=== PATIENT | male | born 1940 | race Caucasian/White ===

== ENCOUNTER 2018-12-05 07:44 | Inpatient (IN) | payer MEDICARE, MEDICAID ==
[2018-12-05] VITALS (12 sets, daily range): BP systolic 122–158; BP diastolic 62–74
[~2018-12-05] VITALS: Ht 177.8 cm; Wt 51.3 kg
[2018-12-05 08:45] LABS: BASOPHILS % 0.8 % (0.0-2.0); EOSINOPHILS % 3.6 % (0.0-5.0); HEMATOCRIT. 41.7 % (42.0-52.0); HEMOGLOBIN. 13.6 g/dL (14.0-18.0); LYMPHOCYTES % 22.7 % (20.0-50.0); MEAN CORPUSCULAR HEMOGLOBIN 27.8 pg (28.0-32.0); MEAN CORPUSCULAR VOLUME 85.4 fL (80.0-94.0); MEAN PLATELET VOLUME 8.6 fl (7.4-10.4); MONOCYTES % 8.7 % (2.0-8.0); NEUTROPHILS % 64.2 % (40.0-76.0); PLATELET 177 x1000/uL (130-400); RED BLOOD CELL COUNT 4.88 mill/uL (4.7-6.1); RED CELL DISTRIBUTION WIDTH 14.5 % (11.6-14.6)
[2018-12-05 08:58] LABS: INR 1.1; PROTHROMBIN TIME 10.7 sec (9.1-11.1)
[2018-12-05] MEDS ORDERED: LOSA100T14 PO (10:18)
[2018-12-05] MEDS ORDERED: HYDR25TA PO (10:18)
[2018-12-05] MEDS ORDERED: FINA5TAB11 PO (10:18)
[2018-12-05] MEDS ORDERED: NITR0.4T49 SL (10:18)
[2018-12-05] MEDS ORDERED: LOVA40TA73 PO (10:18)
[2018-12-05] MEDS ORDERED: ASPI-1159 PO (10:18)
[2018-12-05] MEDS ORDERED: METF-414 PO (10:18)
[2018-12-05] MEDS ORDERED: ACETAMINOPHEN 650MG/20.3ML UDC GT PRN (12:00)
[2018-12-05] MEDS ORDERED: MAGNESIUM/ALUMINUM HYDROXIDE/SIMETHICONE 30ML UDC PO PRN (12:00)
[2018-12-05] MEDS ORDERED: ATROPINE SULFATE 1MG/10ML SYR IV PRN (12:00)
[2018-12-05] MEDS ORDERED: ONDANSETRON HCL 4MG/2ML INJ IV PRN (12:00)
[2018-12-05] MEDS ORDERED: ACETAMINOPHEN 325MG TABLET PO PRN ×2 (12:00)
[2018-12-05] MEDS ORDERED: MORPHINE SULFATE 4 MG/ML CPJ (NOT FOR IM USE) IV PRN (12:00)
[2018-12-05] MEDS ORDERED: LORAZEPAM 0.5MG TABLET PO PRN (12:00)
[2018-12-05] MEDS ORDERED: ACETAMINOPHEN 325MG TABLET ONE (12:03)
[2018-12-05] MEDS ORDERED: CLOPIDOGREL 75MG TABLET ONE (12:03)
[2018-12-05] MEDS ORDERED: ASPIRIN 325MG TABLET ONE (12:04)
[2018-12-05] MEDS ORDERED: IODIXANOL 320MG/ML 100 ML BOTTLE IV ONE (12:05)
[2018-12-05] MEDS ORDERED: LIDOCAINE HCL 1% 20ML VIAL (Pyxis) INJ ONE (12:05)
[2018-12-05] MEDS ORDERED: MIDAZOLAM HCL 2 MG/2 ML VIAL ONE ×2 (12:06→15:45)
[2018-12-05] MEDS ORDERED: FENTANYL CITRATE/PF 50MCG/ML 2ML VIAL ONE ×2 (12:07→15:46)
[2018-12-05] MEDS ORDERED: IOHEXOL-300 100 ML BOTTLE ONE (12:11)
[2018-12-05] MEDS ORDERED: NITROGLYCERIN 50MCG/ML 10ML VIAL (CATH LAB) IV ONE (13:22)
[2018-12-05] MEDS ORDERED: NICARDIPINE 100MCG/ML 10ML VIAL (CATH LAB) IV ONE (13:22)
[2018-12-05] MEDS ORDERED: SODIUM CHLORIDE 0.45% 1,000 ML IV ONE (14:30)
[2018-12-05] MEDS ORDERED: DEXTROSE 50% WATER 50ML SYRINGE IV PRN ×2 (14:30)
[2018-12-05] MEDS: LOSARTAN POTASSIUM 100 MG TABLET PO SCH (15:00)
[2018-12-05] MEDS ORDERED: HEPARIN SODIUM 1,000 UNIT/1ML VIAL IV ONE (15:46)
[2018-12-05] MEDS: BLOOD SUGAR DIAGNOSTIC STRIP TEST SCH ×2 (17:08→20:22)
[2018-12-05] MEDS: INSULIN LISPRO 100 UNITS/ML SUBCUT SCH ×2 (17:08→20:23)
[2018-12-05] MEDS ORDERED: HYDRALAZINE 20MG/ML VIAL IV PRN (18:15)
[2018-12-05] MEDS: METOPROLOL TARTRATE 25MG TABLET PO SCH (20:27)
[2018-12-05] MEDS ORDERED: ATORVASTATIN CALCIUM 40MG TABLET PO SCH (21:00)
[2018-12-06 02:56] VITALS: BP 117/65
[2018-12-06 04:22] VITALS: BP 109/62
[2018-12-06 05:34] VITALS: BP 129/75
[2018-12-06 05:46] LABS: BASOPHILS % 0.6 % (0.0-2.0); EOSINOPHILS % 3.3 % (0.0-5.0); HEMATOCRIT. 40.2 % (42.0-52.0); HEMOGLOBIN. 13.4 g/dL (14.0-18.0); LYMPHOCYTES % 13.7 % (20.0-50.0); MEAN CORPUSCULAR HEMOGLOBIN 28.2 pg (28.0-32.0); MEAN CORPUSCULAR VOLUME 84.1 fL (80.0-94.0); MEAN PLATELET VOLUME 8.8 fl (7.4-10.4); MONOCYTES % 8.1 % (2.0-8.0); NEUTROPHILS % 74.3 % (40.0-76.0); PLATELET 158 x1000/uL (130-400); RED BLOOD CELL COUNT 4.77 mill/uL (4.7-6.1); RED CELL DISTRIBUTION WIDTH 14.2 % (11.6-14.6)
[2018-12-06] MEDS: INSULIN LISPRO 100 UNITS/ML SUBCUT SCH (05:50)
[2018-12-06] MEDS: BLOOD SUGAR DIAGNOSTIC STRIP TEST SCH (05:50)
[2018-12-06 06:09] LABS: CHLORIDE 104 mEq/L (98-107)
[2018-12-06 08:34] VITALS: BP 116/73
[2018-12-06] MEDS: METOPROLOL TARTRATE 25MG TABLET PO SCH (08:37)
[2018-12-06] MEDS: LOSARTAN POTASSIUM 100 MG TABLET PO SCH (08:37)
[2018-12-06] MEDS ORDERED: CLOPIDOGREL 75MG TABLET PO SCH (09:00)
[2018-12-06] MEDS ORDERED: ASPIRIN 325MG TABLET PO SCH (09:00)
[2018-12-06 10:38] VITALS: BP 152/64
[2018-12-06 10:55] VITALS: BP 152/64
== END 2018-12-06 12:40 | disposition home or self-care (01) | DRG 247 ==
LOC: CCL 07:44 → 3WST 07:45
PROVIDERS: ADMIT Internal Medicine Cardiovascular Disease; ATTEND Internal Medicine Cardiovascular Disease
PROC: 027135Z Dilation of Coronary Artery, Two Arteries with Two Drug-eluting Intraluminal Devices, Percutaneous Approach (ICD-10-PCS; principal; 2018-12-05)
PROC: 4A023N7 Measurement of Cardiac Sampling and Pressure, Left Heart, Percutaneous Approach (ICD-10-PCS; 2018-12-05)
PROC: B2111ZZ Fluoroscopy of Multiple Coronary Arteries using Low Osmolar Contrast (ICD-10-PCS; 2018-12-05)
DX: I25.10 Atherosclerotic heart disease of native coronary artery without angina pectoris (principal); I10 Essential (primary) hypertension; E11.9 Type 2 diabetes mellitus without complications; E78.5 Hyperlipidemia, unspecified; Z82.49 Family history of ischemic heart disease and other diseases of the circulatory system; Z83.438 Family history of other disorder of lipoprotein metabolism and other lipidemia
CPT/HCPCS: 36415; 80048; 82962; 85347; 92928; 93005; 93454; C1725; C1760; C1769; C1874; C1887; C1893; J1644; J2250; J3010; J3490; Q9967